=== PATIENT | female | born 1940 | race Two or more races ===

== ENCOUNTER → 2018-03-15 | Outpatient (CLI) | payer MEDICARE, BC | END | disposition home or self-care (01) | LOC: Rad HDHVI 13:00 | PROVIDERS: ATTEND Internal Medicine Cardiovascular Disease | DX: I20.9 Angina pectoris, unspecified (principal) | CPT/HCPCS: 93306 ==

== ENCOUNTER → 2018-03-22 | Outpatient (CLI) | payer MEDICARE, BC ==
[~2018-03-22] VITALS: Ht 162.6 cm; Wt 96.2 kg
[~2018-03-22] MED LIST: ADENOSINE 81 MG in GIVE UN-DILUTED 0 ML IV ONE; ADENOSINE 90 MG/30 ML INJ IV ONE
== END | disposition home or self-care (01) ==
LOC: Rad HDHVI 08:28
PROVIDERS: ATTEND Internal Medicine Cardiovascular Disease
DX: Z01.810 Encounter for preprocedural cardiovascular examination (principal); I20.9 Angina pectoris, unspecified; E11.9 Type 2 diabetes mellitus without complications; E78.00 Pure hypercholesterolemia, unspecified; I45.10 Unspecified right bundle-branch block
CPT/HCPCS: 78452; 93005; 96374; 96375; A9500; J0153

== ENCOUNTER → 2019-01-10 | Outpatient (CLI) | payer MEDICARE, BC | END | disposition home or self-care (01) | LOC: Rad HDHVI 13:55 | PROVIDERS: ATTEND Internal Medicine Cardiovascular Disease | DX: I20.9 Angina pectoris, unspecified (principal); I45.10 Unspecified right bundle-branch block | CPT/HCPCS: 93306; 93880 ==

== ENCOUNTER → 2019-01-17 | Outpatient (CLI) | payer MEDICARE, BC ==
[~2019-01-17] VITALS: Ht 162.6 cm; Wt 95.3 kg
[~2019-01-17] MED LIST changes: +ADENOSINE 80 MG in GIVE UN-DILUTED 0 ML IV ONE; -ADENOSINE 81 MG in GIVE UN-DILUTED 0 ML IV ONE
== END | disposition home or self-care (01) ==
LOC: Rad HDHVI 13:17
PROVIDERS: ATTEND Internal Medicine Cardiovascular Disease
DX: R06.02 Shortness of breath (principal); I10 Essential (primary) hypertension; E78.00 Pure hypercholesterolemia, unspecified
CPT/HCPCS: 78452; 93005; 96374; 96375; A9500; J0153